=== PATIENT | male | born 1965 | race Two or more races ===

== ENCOUNTER 2017-04-16 19:17 | Emergency (ER) | payer SELFPAY ==
[~2017-04-16] VITALS: Ht 182.9 cm; Wt 90.7 kg
[2017-04-16 20:03] VITALS: BP 108/75
== END 2017-04-16 22:41 | disposition home or self-care (01) ==
LOC: ER 19:41
DX: S16.1XXA Strain of muscle, fascia and tendon at neck level, initial encounter (principal); S39.012A Strain of muscle, fascia and tendon of lower back, initial encounter; V89.2XXA Person injured in unspecified motor-vehicle accident, traffic, initial encounter; Y93.89 Activity, other specified; Y92.488 Other paved roadways as the place of occurrence of the external cause; Y99.8 Other external cause status
CPT/HCPCS: 70450; 72040; 72100; 72170; 99284; A4606; Z7610